=== PATIENT | male | born 1960 | race Caucasian/White ===

== ENCOUNTER → 2016-08-01 | Day surgery (SDC) | payer BC ==
[~2016-08-01] MED LIST: AMARYL PO; ASTRAZENECA PO; LIPITOR PO; LOTREL; METFORMIN HCL500 M1 PO; VICODIN 5/500 T1 TAB PO
--- NOTE | ~2016-08-01 | OR ---
Unit #: [id number] #: [id number] Patient: DANIELLE BENAVIDEZ [id number] [address] [id number] [id number] O MR#: [id number] NAME: DANIELLE BENAVIDEZ ROOM: Date of Procedure: 08/01/2016 Admission Date: 08/01/2016 Surgeon: Uche Oconnell M.D. : 1960 Attending Physician: Uche Oconnell M.D. Primary Care Physician: Generic Doctor Not In System OPERATIVE REPORT PROCEDURE PERFORMED Colonoscopy with snare polypectomy. INDICATIONS FOR PROCEDURE History of polyps. MEDICATIONS Monitored anesthesia. POSTOPERATIVE FINDINGS 1. Polyp, 5 mm, flat right on the ascending colon, site of the ileocecal valve snared and sent for histopathology. 2. Polyp, 5 mm, transverse colon, snared and sent for histopathology. 3. Diverticulosis. 4. Internal hemorrhoids. 5. Good prep. PLAN Follow up on the pathology report. Repeat colonoscopy in 5 years. DESCRIPTION OF PROCEDURE The patient was explained of the procedure, risks, and benefits along with the risks and benefits of anesthesia. He was brought to the endoscopy room. Propofol anesthesia was given. Rectal exam was done, which was normal. Colonoscope was lubricated, passed up the rectum, advanced under direct vision all the way to the cecum. Cecum was identified by ileocecal valve and appendiceal orifice. Then I started to pull the scope out carefully looking. Polyps as described. The prep was good. I retroflexed in the rectum, internal hemorrhoids noted. Gently, the scope was pulled out. He tolerated it well. Dictated by... John Christopher/alexsandra TD: 08/01/2016 23:15 JOB #: [id number] Unit #: [id number] #: [id number] Patient: DANIELLE BENAVIDEZ OPERATIVE REPORT Page 1 of 1 X Uche Oconnell MD PROCEDURE OPERATIVE NOTE
== END | disposition home or self-care (01) ==
LOC: COPS 07:57
DX: D12.2 Benign neoplasm of ascending colon (principal); D12.3 Benign neoplasm of transverse colon; K57.30 Diverticulosis of large intestine without perforation or abscess without bleeding; K64.8 Other hemorrhoids; Z86.010 Personal history of colon polyps; E11.9 Type 2 diabetes mellitus without complications; Z79.84 Long term (current) use of oral hypoglycemic drugs; E66.9 Obesity, unspecified; Z68.36 Body mass index [BMI] 36.0-36.9, adult
CPT/HCPCS: 82947; 88305